=== PATIENT | female | born 1945 | race Two or more races ===

== ENCOUNTER 2020-10-28 21:51 | Inpatient (IN) | payer MEDICARE, OTHER ==
[~2020-10-28] VITALS: Ht 160 cm; Wt 59.9 kg
--- NOTE | 2020-10-28 22:08 | NUR ---
MALCOLM FROM HOME EVALUATION S/P SYNCOPAL EPISODE . PER EMS AND THE PT , SHE DENIED FALL OR HITTING HEAD. PT A, OX4, FARSI SPEAKING. REPORTED FEELING NOT VERY WELL SINCE AM , W/ NO APPETITE. CURRENTLY W/ C/O WEAKNESS AND R SIDED H/A. PT WS PLACED ON A MONITOR IN BED 12. VSS. WILL CONT TO MONITOR ,
[2020-10-28] MEDS ORDERED: ONDANSETRON HCL/PF 4 MG/2 ML VIAL ONE (22:18)
[2020-10-28] MEDS ORDERED: IV NS 0.9% 500 ML BAG IV ONE (22:30)
[2020-10-28] MEDS ORDERED: ONDANSETRON HCL/PF 4 MG/2 ML VIAL IVP ONE (22:30)
--- NOTE | 2020-10-28 22:31 | NUR ---
LINE ESTABLISHED LAC 20G, BLOOD COLLECTED, SENT TO LAB. COVID SWABBED, AWAITING FOR OTHER ORDERS.
[2020-10-28 23:04] LABS: BASOPHILS # (AUTO) 0.1 /CMM (0.0-0.2); BASOPHILS % (AUTO) 1.9 % (0.0-2.0); HEMATOCRIT 43 % (33-45); HEMOGLOBIN 14.2 g/dL (11.5-14.8); LYMPHOCYTES # (AUTO) 0.7 /CMM (0.8-4.8); LYMPHOCYTES % (AUTO) 19.6 % (20.0-44.0); MEAN CORPUSCULAR HGB CONC 33 g/dl (31.0-36.0); MEAN CORPUSCULAR VOLUME 92 fL (82-100); MONOCYTES # (AUTO) 0.7 /CMM (0.1-1.30); MONOCYTES % (AUTO) 18.4 % (2.0-12.0); NEUTROPHILS # (AUTO) 2.3 /CMM (1.8-8.9); NEUTROPHILS % (AUTO) 60.1 % (43.0-81.0); PLATELET COUNT (AUTO) 135 /CMM (150-450); RED BLOOD CELL COUNT(AUTO) 4.67 MIL/uL (4.0-5.2); WHITE BLOOD COUNT (AUTO) 3.8 K/uL (4.3-11.0)
[2020-10-28 23:15] LABS: CALCIUM, SERUM 8.4 mg/dL (8.5-10.1); CREATININE 0.8 mg/dL (0.6-1.3); POTASSIUM 3.7 mmol/L (3.5-5.1)
--- NOTE | 2020-10-28 23:18 | NUR ---
SPOKE TO THE PT'S FAMILY REGARDING PLAN OF CARE. WILL UPDATE REGARDING BLOOD WORK.
[2020-10-28 23:20] LABS: ALBUMIN 3.3 g/dL (3.4-5.0); BILIRUBIN,DIRECT 0.1 mg/dL (0.0-0.2); BILIRUBIN,TOTAL 0.4 mg/dL (0.2-1.0); TOTAL PROTEIN, SERUM 6.8 g/dL (6.4-8.2)
--- NOTE | 2020-10-28 23:28 | NUR ---
LAB CALLED REGARDING NEGATIVE COVID RESULT.
[2020-10-29] MEDS ORDERED: ASPIRIN 81 MG TAB.CHEW PO ONE
--- NOTE | 2020-10-29 00:28 | NUR ---
DR. ANTUNEZ SPEAKING WITH DR. EVA JENKINS REGARDING ADMISSION
[2020-10-29] MEDS ORDERED: TEMAZEPAM 15 MG CAPSULE PO PRN (03:00)
[2020-10-29] MEDS ORDERED: ACETAMINOPHEN 325 MG TABLET PO PRN (03:00)
[2020-10-29] MEDS ORDERED: ONDANSETRON HCL/PF 4 MG/2 ML VIAL IVP PRN (03:00)
[2020-10-29] MEDS ORDERED: HYDROCODONE/APAP 5/325MG TABLET PO PRN (03:00)
[2020-10-29] MEDS ORDERED: ENOXAPARIN SODIUM 40 MG/0.4 ML DISP.SYRIN SQ ONE ×2 (03:36→20:45)
[2020-10-29] MEDS: ENOXAPARIN SODIUM 40 MG/0.4 ML DISP.SYRIN SQ SCH ×2 (03:36→21:15)
[2020-10-29 05:35] LABS: BASOPHILS # (AUTO) 0.1 /CMM (0.0-0.2); BASOPHILS % (AUTO) 1.7 % (0.0-2.0); HEMATOCRIT 43 % (33-45); HEMOGLOBIN 14.2 g/dL (11.5-14.8); LYMPHOCYTES # (AUTO) 1.3 /CMM (0.8-4.8); LYMPHOCYTES % (AUTO) 33.3 % (20.0-44.0); MEAN CORPUSCULAR HGB CONC 33 g/dl (31.0-36.0); MEAN CORPUSCULAR VOLUME 93 fL (82-100); MONOCYTES # (AUTO) 0.5 /CMM (0.1-1.30); MONOCYTES % (AUTO) 12.7 % (2.0-12.0); NEUTROPHILS % (AUTO) 52.3 % (43.0-81.0); PLATELET COUNT (AUTO) 151 /CMM (150-450); RED BLOOD CELL COUNT(AUTO) 4.66 MIL/uL (4.0-5.2); WHITE BLOOD COUNT (AUTO) 3.8 K/uL (4.3-11.0)
[2020-10-29 05:53] LABS: CALCIUM, SERUM 8.7 mg/dL (8.5-10.1); CREATININE 0.8 mg/dL (0.6-1.3); MAGNESIUM 1.8 mg/dL (1.8-2.4); PHOSPHORUS 4.4 mg/dL (2.5-4.9); POTASSIUM 4.6 mmol/L (3.5-5.1)
[2020-10-29 06:19] LABS: THYROID STIMULATING HORMONE 1.125 uIU/mL (0.358-3.74)
[2020-10-29] MEDS ORDERED: PANTOPRAZOLE 40 MG TABLET.DR PO SCH (07:30)
[2020-10-29] MEDS ORDERED: PANTOPRAZOLE 40 MG TABLET.DR PO ONE (07:38)
--- NOTE | 2020-10-29 07:58 | NUR ---
ASSESSED PT ON BED AWAKE AND ALERT PARSI SPEAKING ONLY, V/S STABLE, BREAKFAST TRAY PROVIDED. WILL CONTINUE TO MONITOR.
[2020-10-29] MEDS ORDERED: METOPROLOL TARTRATE 25 MG TABLET ONE ×2 (08:29→20:46)
[2020-10-29] MEDS ORDERED: ASPIRIN EC 325 MG TABLET.DR PO ONE (08:30)
[2020-10-29] MEDS: ASPIRIN EC 325 MG TABLET.DR PO SCH ×2 (08:48→08:55)
[2020-10-29] MEDS: METOPROLOL TARTRATE 25 MG TABLET PO SCH ×2 (08:48→21:00)
--- NOTE | 2020-10-29 08:55 | NUR ---
PT GIVEN ASPIRIN 324 AT [id number]
[2020-10-29] MEDS: DOCUSATE SODIUM 100 MG CAPSULE PO SCH ×2 (08:58→16:29)
[2020-10-29] MEDS ORDERED: LEVO50TA8 PO (09:36)
[2020-10-29] MEDS ORDERED: ASPI-1420 PO (09:36)
[2020-10-29] MEDS ORDERED: ALBU18HF2 IH (09:36)
[2020-10-29] MEDS ORDERED: METO25TA20 PO (09:36)
[2020-10-29] MEDS ORDERED: MECL-159 PO (09:36)
[2020-10-29] MEDS ORDERED: ALBUTEROL FS 2.5 MG/3 ML VIAL.NEB IH PRN (14:30)
[2020-10-29] MEDS ORDERED: MECLIZINE HCL 25 MG TABLET PO PRN (14:30)
--- NOTE | 2020-10-29 19:19 | NUR ---
report given to Malorie LEIJA for joe
--- NOTE | 2020-10-29 19:20 | NUR ---
rec'd report from LISS Mauro
--- NOTE | 2020-10-29 21:27 | NUR ---
Pt decided to AMA. I explained the benefits vs risk of leaving and I had a Farsi speaking nurse explain the benefits vs risk as well. Pt aaox4 and verbalized understanding. Pt was medicated for the night and still wanted to sign AMA. Pt awaiting her family to pick her up. Patient does not wish to proceed with medical care recommended by Dr. Sin. Patient given information related to possible complications, up to and including , which could occur as a result of leaving the hospital at this time. Patient verbalizes understanding of risks involved due to leaving against medical advice. Patient has signed AMA form. IV removed. Catheter intact and site benign. Pressure and 4x4 applied to site. No bleeding noted. Pt. ambulatory with a steady gait
[2020-10-29 21:45] VITALS: BP 137/66
[2020-10-30] MEDS ORDERED: LEVOTHYROXINE SODIUM 50 MCG TABLET PO SCH (07:30)
[2020-10-30] MEDS ORDERED: ASPIRIN EC 81 MG TABLET.DR PO SCH (09:00)
[2020-10-30] MEDS ORDERED: METOPROLOL TARTRATE 25 MG TABLET PO SCH (09:00)
== END 2020-10-29 21:30 | disposition left against medical advice (07) | DRG 73 ==
LOC: ER 21:53 → TRANSITION 10-29 00:43
PROVIDERS: ADMIT Registered Nurse; ATTEND Registered Nurse
DX: G90.8 Other disorders of autonomic nervous system (principal); I21.A1 Myocardial infarction type 2; J15.9 Unspecified bacterial pneumonia; E87.1 Hypo-osmolality and hyponatremia; I10 Essential (primary) hypertension; E78.5 Hyperlipidemia, unspecified; Z20.822 Contact with and (suspected) exposure to COVID-19; Z85.42 Personal history of malignant neoplasm of other parts of uterus; Z90.49 Acquired absence of other specified parts of digestive tract; Z90.710 Acquired absence of both cervix and uterus; Z85.038 Personal history of other malignant neoplasm of large intestine; I25.2 Old myocardial infarction; I25.10 Atherosclerotic heart disease of native coronary artery without angina pectoris; E86.1 Hypovolemia
CPT/HCPCS: 36415; 70450-TC; 71045-TC; 71250-TC; 80048-TC; 80061-TC; 80076-TC; 82962-TC; 83735-TC; 83880; 84100-TC; 84443-TC; 84484-TC; 85025-TC; 85730-TC; 87081-TC; 93307-TC; C9803; G0378; J1650; J2405; J7040

== ENCOUNTER 2025-07-12 14:51 | Emergency (ER) | payer OTHER ==
[~2025-07-12] VITALS: Ht 162.6 cm; Wt 64.0 kg
[~2025-07-12 14:51] MED LIST: ALBU18HF2 IH; ASPI-1420 PO; LEVO50TA8 PO; MECL-159 PO; METO25TA20 PO
[2025-07-12 15:35] LABS: PLATELET COUNT (AUTO) 235 K/uL (150-450); RED BLOOD CELL COUNT(AUTO) 4.32 MIL/uL (4.0-5.2); RED CELL DISTRIBUTION WIDTH 13.6 % (11.5-15.0); WHITE BLOOD COUNT (AUTO) 5.3 K/uL (4.3-11.0)
[2025-07-12] MEDS ORDERED: MECLIZINE HCL 25 MG TABLET ONE (15:36)
[2025-07-12] MEDS ORDERED: ACETAMINOPHEN ES 500 MG TABLET ONE (15:36)
[2025-07-12] MEDS: MECLIZINE HCL 25 MG TABLET PO ONE (15:38)
[2025-07-12] MEDS: ACETAMINOPHEN ES 500 MG TABLET PO ONE (15:39)
[2025-07-12 15:41] LABS: CALCIUM, SERUM 8.9 mg/dL (8.5-10.1); CREATININE 0.6 mg/dL (0.6-1.3); SODIUM SERUM 132 mmol/L (136-145); UREA NITROGEN, BLOOD 19 mg/dL (7-18)
[2025-07-12 15:54] LABS: ASPARTATE AMINOTRANSFERASE 18 U/L (15-37); NT-PRO BNP 344 pg/mL (0-125); TOTAL PROTEIN, SERUM 7.2 g/dL (6.4-8.2)
[2025-07-12 16:53] VITALS: BP 135/70; TEMP 98; O2SAT 99
[2025-07-12] MEDS ORDERED: IBUPROFEN 600 MG TABLET PO ONE (17:00)
== END 2025-07-12 16:54 | disposition home or self-care (01) ==
LOC: ER 14:56
DX: R51.9 Headache, unspecified (principal); R11.0 Nausea; I11.9 Hypertensive heart disease without heart failure; I25.2 Old myocardial infarction; R06.02 Shortness of breath; Z79.82 Long term (current) use of aspirin; Z79.899 Other long term (current) drug therapy; Z85.42 Personal history of malignant neoplasm of other parts of uterus
CPT/HCPCS: 99285; 70450; 71045; 93005; 85025; 80048; 80076; 36415; 84484; 83880; 82962; J8597